=== PATIENT | female | born 1955 | race Caucasian/White ===

== ENCOUNTER 2024-05-18 14:46 | Emergency (ER) | payer BC, SELFPAY ==
--- NOTE | ~2024-05-18 | XR_ITS ---
CLINICAL HISTORY: fall. let hand wrrist pain Radiographs of the left wrist, 4 views Comparison: None Findings: There is a comminuted fracture of the distal radial metaphysis with mild impaction measuring up to 7 mm. There is intra-articular extension. 8 mm well corticated ossific fragment at the radial aspect of the wrist adjacent to the scaphoid, favored to be chronic. The origin of the ossific fragment is not definitively visualized. It is 0.6 cm from fracture distal radius, however felt unlikely to have originated from the distal radius fracture. No dislocation. [id number] degenerative change. Bone mineralization is decreased. Soft tissue swelling. Impression: Comminuted fracture of the distal radial metaphysis with intra-articular extension. This document has been electronically signed by: Aleksandra Long MD on 05/18/2024 16:08:16
[2024-05-18 14:51] VITALS: BP 139/85; PULSE 74; RESP 20; TEMP 37; O2SAT 98; BMI 28.4
--- NOTE | 2024-05-18 15:00 | ED_ITS ---
HPI - General Adult General Chief complaint: Fall Stated complaint: hand inj Time Seen by Provider: 05/18/24 17:29 Source: patient Mode of arrival: ambulatory Limitations: no limitations History of Present Illness ED Provider: Brandee Sousa NP HPI narrative: Patient is a 68-year-old female with no reported past medical history not on anticoagulants who presents emergency department for evaluation. She reports while walking her dog today, she tripped over her foot resulting in a fall forward landing onto the left outstretched hand as well as her right knee. No associated head strike or loss of consciousness. Has a superficial abrasion to the right knee but denies pain, is able to ambulate on it without difficulty. Primary concern is pain to the left wrist exacerbated with any movement. Denies prior injury. Denies numbness tingling or cold sensation Related Data Previous Rx's ?Medication ?Instructions ?Recorded oxycodone 5 mg tablet,oral ONLY 5 mg PO Q6H PRN pain #10 ea 05/18/24 (not feeding tubes) Allergies Allergy/AdvReac Type Severity Reaction Status Date / Time No Known Allergies Allergy Verified 05/18/24 14:58 Review of Systems Review of Systems: Yes all other systems are reviewed and are negative PMFSH Past Medical History Attestation statement: The following information was validated with the patient. Source: old records reviewed Social History Social History Smoked in Last 30 Days: No Use of substances other than those prescribed or required for medical reasons: No Advance Directives: No Advance Directives Information Provided: No Do you have a plan to hurt others: No Plan Physical Exam ED Vital Signs: Vital Signs - 24 hr 05/18/24 14:51 05/18/24 18:42 Temperature 98.6 F 98.6 F Pulse Rate 74 74 Respiratory Rate 20 20 Blood Pressure 139/85 139/85 Pulse Oximetry 98 98 Oxygen Delivery Method Room Air Room Air BMI result Body Mass Index 28.4 Appearance: Alert.?Oriented to person, place and time. No acute distress.?Normal affect. Eyes: Pupils equal, round and reactive to light.? Head: Normocephalic, atraumatic ENT: Pharynx normal.?? Neck: Normal inspection.? Neck supple.?? CVS: Heart sounds normal. Normal heart rate and rhythm.? Pulses normal.?? Respiratory: No respiratory distress.? Lung sounds clear to auscultation bilaterally? Skin: Skin warm and dry.? Normal skin color.? ?? Extremities: No lower extremity edema.? No calf ttp. Right knee with superficial abrasion full range of motion. No laxity. No effusion. Left wrist with localized swelling, diffuse tenderness upon palpation. 2+ radial pulse. Neuro: Moves all extremities spontaneously. Sensation intact bilaterally. No focal neuro deficits. Ambulates with normal steady gait. Course Course Course Narrative: RME; 68-year-old female presents to ED for left wrist pain. Patient tripped over her own feet and landed on her left wrist and right knee. Patient denies hitting head or loss of consciousness. Patient is not any blood thinners. Patient has range of motion of left upper extremity but with pain. Has some abrasion of right knee. Images ordered Procedures Orthopedic Splinting/Casting Injury #1: Side: left Upper Extremity Injury Location: wrist Upper Extremity Immobilizer: sugar tong splint Medical Decision Making Medical Decision Making MDM Narrative: Patient is a 68-year-old female with no reported past medical history presenting to emergency department for evaluation after mechanical trip and fall as per HPI. No head injury no loss of consciousness, would defer head CT imaging lower suspicion for ICH, SDH, fracture. She has no focal neurological deficits. Right knee with a superficial abrasion otherwise full range of motion, no effusion, no reported pain and ambulatory without unsteady or antalgic gait. Primary concern is pain to the left wrist, which appears locally swollen, tenderness upon palpation. XR shows a comminuted fracture of the distal radius. Extremity is neurovascularly intact distally. A sugar-tong splint was applied, reviewed conservative treatment in addition to outpatient follow-up with orthopedics. Discussed strict return precautions. All questions answered. Stable for discharge Differential Diagnosis Differential Diagnoses: The differential diagnosis associated with the presentation includes (See narrative above) Independent Interpretation I performed an independent interpretation of an: Plain X-Ray (See narrative above) Radiology Impression Discussion of test interpretation with radiology: I have reviewed the radiologist's reading. Radiologist Impression: Radiographs of the left wrist, 4 views Comparison: None Findings: There is a comminuted fracture of the distal radial metaphysis with mild impaction measuring up to 7 mm. There is intra-articular extension. 8 mm well corticated ossific fragment at the radial aspect of the wrist adjacent to the scaphoid, favored to be chronic. The origin of the ossific fragment is not definitively visualized. It is 0.6 cm from fracture distal radius, however felt unlikely to have originated from the distal radius fracture. No dislocation. [id number] degenerative change. Bone mineralization is decreased. Soft tissue swelling. Impression: Comminuted fracture of the distal radial metaphysis with intra-articular extension. External Record Review External record reviewed: Other I attest that I have reviewed patients [employer], and at the time prescribing the patient a controlled substance is appropriate based off of patients diagnosis and treatment plan. Prescription Management I considered prescription management with: Pain Medication Discharge Plan Discharge Clinical Impression: Distal radius fracture, left Qualifiers: Encounter type: initial encounter Fracture type: closed Patient Disposition: Home, Self-Care Instructions: Wrist Fracture in Adults (ED) Additional Instructions: Be sure to rest over the next few days, apply a large bag of ice over the splint for 10-15 minutes 4-6 times daily. Elevate the arm above the level of your chest. You can take ibuprofen 200 mg, 3 tablets (600mg) every 6-8 hours as needed for pain, in addition to Tylenol 500 mg, 2 tablets (1,000mg) every 4-6 hours as needed for pain, but not to exceed 3 doses daily (3,000mg).? For pain that is unrelieved by either of the above I have sent a short prescription for oxycodone to your pharmacy. This is a narcotic medication. It can be addictive/habit forming. It may make you drowsy. You should not drive, drink alcohol, or work while taking this medication. You may use a sling to help support the weight of the forearm. The splint must remain in place at all times until evaluated by orthopedics. It can not get wet. As this will result in it falling apart. You will need to contact the orthopedic office 1st thing tomorrow morning they will not contact you directly to schedule appointment. Return with new or worsening symptoms or concerns which includes but is not calvin ited to severe worsening pain, swelling to the fingers, decreased sensation to the fingers, increased pressure swelling sensation to the arm beneath the splint, discoloration to the fingertips. Prescriptions: New oxycodone 5 mg tablet, oral only 5 mg PO Q6H PRN (Reason: pain) Qty: 10 0RF Rx Instructions: Partial Fill upon patient request. Referrals: [facility] – [place] Orthopedic Surgeons [Provider Group] (Comminuted distal radius fracture) Interventions: ED Discharge Assessment Last Done: 05/18/24 18:42 Discharge Date/Time: 05/18/24 18:43 Print Language: Palestinian
[2024-05-18 18:42] VITALS: BP 139/85; PULSE 74; RESP 20; TEMP 37; O2SAT 98
== END 2024-05-18 18:43 | disposition home or self-care (01) ==
PROVIDERS: Emergency Provider Emergency Medicine Emergency Medical Services
DX: S52.92XA Unspecified fracture of left forearm, initial encounter for closed fracture (principal); M25.532 Pain in left wrist; W01.0XXA Fall on same level from slipping, tripping and stumbling without subsequent striking against object, initial encounter; Y93.K1 Activity, walking an animal; Y92.488 Other paved roadways as the place of occurrence of the external cause; Y99.8 Other external cause status
CPT/HCPCS: 29125; 73110; 73130; 99284

== ENCOUNTER → 2024-05-18 15:01 | Outpatient (BNV) | payer BC, SELFPAY | PROVIDERS: Visit Provider Radiology Diagnostic Radiology | DX: S52.572A Other intraarticular fracture of lower end of left radius, initial encounter for closed fracture (principal) | CPT/HCPCS: 73110; 73130 ==